=== PATIENT | male | born 1950 | race Caucasian/White ===

== ENCOUNTER 2016-09-20 06:39 | Emergency (ER) | payer OTHER ==
[2016-09-20 06:52] VITALS: TEMP 97.9
[2016-09-20] MEDS ORDERED: APAP/OXYCODONE 325/5 TAB PO ONE (07:05)
[2016-09-20] MEDS ORDERED: APAP/OXYCODONE 325/5 TAB ONE (07:07)
[2016-09-20 08:08] VITALS: RESP 20
[2016-09-20 08:10] VITALS: BP 107/52; PULSE 76; O2SAT 94
== END 2016-09-20 08:57 | disposition home or self-care (01) ==
LOC: ED 06:39
DX: L76.22 Postprocedural hemorrhage of skin and subcutaneous tissue following other procedure (principal); Z96.651 Presence of right artificial knee joint
CPT/HCPCS: 73562; 99282; 99283; A6232